=== PATIENT | female | born 1975 | race Caucasian/White ===

== ENCOUNTER 2019-08-21 02:48 | Emergency (ER) | payer OTHER ==
[~2019-08-21] VITALS: Ht 165.1 cm; Wt 72.6 kg
--- NOTE | 2019-08-21 03:20 | NUR ---
Patient presents to ER with c/o of UTI symptoms x 3 days. Patient is alert and oriented x 4. No acute distress. Urine sent to lab. Pending MD alicia.
[2019-08-21 03:28] LABS: *BILIRUBIN,URIN NEGATIVE (NEGATIVE); *BLOOD, URINE 2+ (NEGATIVE); *CLARITY,URINE CLOUDY (CLEAR); *COLOR,URINE YELLOW (YELLOW); *KETONES,URINE NEGATIVE (NEGATIVE); *UROBILINOGEN,URINE 0.2 E.U./dl (NORMAL); LEUKOCYTE ESTERASE ,URINE 3+ (NEGATIVE); NITRITE, URINE NEGATIVE (NEGATIVE); UGLUCOSE NEGATIVE (NEGATIVE)
[2019-08-21 03:35] LABS: BACTERIA,URINE MANY /HPF (NONE SEEN); RBC,URINE 20-50 /HPF (0-3); SQUAMOUS EPITHELIAL CELL,UR FEW /HPF (NONE SEEN); WBC,URINE TNTC /HPF (0-3)
[2019-08-21 03:36] LABS: *URINE HCG, QUAL NEGATIVE (NEGATIVE)
[2019-08-21] MEDS ORDERED: CEFTRIAXONE 1 G in IV DEXTROSE 5% 50 ML IV ONE (03:45)
[2019-08-21] MEDS ORDERED: NITROFURANTOIN/NITROFURAN MAC 100 MG CAPSULE PO ONE (03:45)
[2019-08-21] MEDS ORDERED: NITROFURANTOIN/NITROFURAN MAC 100 MG CAPSULE ONE (03:55)
[2019-08-21] MEDS ORDERED: CEFTRIAXONE /D5W 50ML IVPB **ER PYXIS IV ONE (03:55)
[2019-08-21 03:58] LABS: BASOPHILS # (AUTO) 0.1 K/uL (0.0-8.0); BASOPHILS % (AUTO) 0.6 % (0.0-2.0); EOSINOPHILS # (AUTO) 0.1 K/uL (0.0-0.7); EOSINOPHILS % (AUTO) 0.8 % (0.0-7.0); HEMATOCRIT 39.8 % (31.2-41.9); HEMOGLOBIN 13.7 g/dL (10.9-14.3); LYMPHOCYTES # (AUTO) 2.2 K/uL (20.0-40.0); MEAN CORPUSCULAR HGB CONC 34 g/dL (32.3-35.6); MEAN CORPUSCULAR VOLUME 93.1 fL (75.5-95.3); MONOCYTES # (AUTO) 0.9 K/uL (2.0-10.0); MONOCYTES % (AUTO) 6.8 % (0.0-11.0); NEUTROPHILS # (AUTO) 10.4 K/uL (1.8-8.9); NEUTROPHILS % (AUTO) 75.8 % (38.5-71.5); PLATELET COUNT (AUTO) 270 K/uL (179-408); RED BLOOD CELL COUNT(AUTO) 4.28 MIL/uL (3.63-4.92); WHITE BLOOD COUNT (AUTO) 13.8 K/uL (3.8-11.8)
[2019-08-21] MEDS ORDERED: PHENAZOPYRIDINE HCL 100 MG TABLET PO ONE (04:00)
[2019-08-21 04:04] LABS: POTASSIUM 3.8 mmol/L (3.5-5.1)
[2019-08-21] MEDS ORDERED: PHENAZOPYRIDINE HCL 100 MG TABLET ONE (04:05)
--- NOTE | 2019-08-21 04:07 | NUR ---
Wilbert at radiology made aware that HCG is negative.
[2019-08-21 04:09] LABS: BILIRUBIN,DIRECT 0.1 mg/dL (0.0-0.2); BILIRUBIN,TOTAL 0.5 mg/dL (0.2-1.0); TOTAL PROTEIN, SERUM 7.1 g/dL (6.4-8.2)
--- NOTE | 2019-08-21 04:16 | NUR ---
pt taken to CT.
--- NOTE | 2019-08-21 04:27 | NUR ---
pt back from ct.
--- NOTE | 2019-08-21 05:04 | NUR ---
Patient resting in gurney, no acute distress.
--- NOTE | 2019-08-21 05:18 | NUR ---
Per Dr. Simpson, patient is stable for DC, copy of labs and CT results provided to patient. DC instructions and prescriptions given and reviewed with patient. Verbalized understanding. IV DC'd noted with tip intact. Patient left ER in stable condition.
== END 2019-08-21 05:18 | disposition home or self-care (01) ==
LOC: ER 02:51
DX: N30.80 Other cystitis without hematuria (principal); R10.9 Unspecified abdominal pain; M54.5 Low back pain; N92.0 Excessive and frequent menstruation with regular cycle; Z60.2 Problems related to living alone
CPT/HCPCS: 36415; 74176; 80048; 80076; 81000; 81001; 83690; 84703; 85025; 87077; 87086; 87186; 99284; J0696; A4663

== ENCOUNTER 2019-09-26 23:08 | Emergency (ER) | payer MEDICAID, OTHER ==
[~2019-09-26] VITALS: Ht 165.1 cm; Wt 72.6 kg
--- NOTE | 2019-09-26 23:50 | NUR ---
PATIENT WAS MSE BY DR HUIZAR IN ROOM 04B. PATIENT A & O X3.
[2019-09-27 00:18] LABS: BASOPHILS # (AUTO) 0.1 K/uL (0.0-8.0); BASOPHILS % (AUTO) 0.6 % (0.0-2.0); EOSINOPHILS # (AUTO) 0.1 K/uL (0.0-0.7); HEMATOCRIT 39.6 % (31.2-41.9); HEMOGLOBIN 13.5 g/dL (10.9-14.3); LYMPHOCYTES # (AUTO) 2.6 K/uL (20.0-40.0); LYMPHOCYTES % (AUTO) 21.6 % (20.5-51.5); MEAN CORPUSCULAR HEMOGLOBIN 31.9 uug (24.7-32.8); MEAN CORPUSCULAR HGB CONC 34 g/dL (32.3-35.6); MEAN CORPUSCULAR VOLUME 93.3 fL (75.5-95.3); MONOCYTES # (AUTO) 0.8 K/uL (2.0-10.0); MONOCYTES % (AUTO) 6.8 % (0.0-11.0); NEUTROPHILS # (AUTO) 8.4 K/uL (1.8-8.9); PLATELET COUNT (AUTO) 306 K/uL (179-408); RED BLOOD CELL COUNT(AUTO) 4.24 MIL/uL (3.63-4.92)
--- NOTE | 2019-09-27 01:10 | NUR ---
DR HUIZAR MADE PATIENT AWARE OF TEST RESULTS.
[2019-09-27] MEDS ORDERED: METRONIDAZOLE 500 MG TABLET ONE (01:13)
[2019-09-27] MEDS ORDERED: METRONIDAZOLE 500 MG TABLET PO ONE (01:15)
--- NOTE | 2019-09-27 01:19 | NUR ---
Patient discharged to home in stable condition. Written and verbal after care instructions given. Patient verbalizes understanding of instructions. Stressed follow up or return to ER for worsening s/s.
[2019-09-27 01:20] VITALS: BP 125/77
== END 2019-09-27 01:25 | disposition home or self-care (01) ==
LOC: ER 23:10
DX: T18.5XXA Foreign body in anus and rectum, initial encounter (principal); K62.5 Hemorrhage of anus and rectum; X58.XXXA Exposure to other specified factors, initial encounter; Y93.89 Activity, other specified; Y92.89 Other specified places as the place of occurrence of the external cause; R10.9 Unspecified abdominal pain
CPT/HCPCS: 36415; 74021; 85025